=== PATIENT | female | born 1980 | race African-American/Black ===

== ENCOUNTER 2020-09-25 06:34 | Emergency (ER) | payer SELFPAY ==
[2020-09-25 06:43] VITALS: BP 112/63
[2020-09-25 07:29] LABS: Bilirubin,Urine NEG (Negative); Blood,Urine SM (Negative); Color,Urine Yellow (Yellow); HCG Qualitative,Urine Negative (Negative); Mucus,Urine 2+ /HPF; Protein,Urine <15 mg/dL mg/dL (Negative); Urobilinogen,Urine < 2.0 mg/dL (<2.0); WBC,Urine < 1.0 /HPF (0.0-6.0)
[2020-09-25 08:16] LABS: Basophils % (Auto) 0.3 % (0.0-1.8); Eosinophils # (Auto) 0.1 K/mm3 (0.0-0.4); Hematocrit 33.9 % (30.3-42.9); Hemoglobin 11.3 gm/dl (10.1-14.3); Lymphocytes % (Auto) 16.8 % (13.4-35.0); Mean Corpuscular HGB Conc 33 % (30-34); Mean Corpuscular Volume 83 fl (79-97); Monocytes # (Auto) 0.6 K/mm3 (0.0-0.8); Monocytes % (Auto) 9.8 % (0.0-7.3); Platelet Count 200 K/mm3 (140-440); Red Cell Distribution Width 14.2 % (13.2-15.2)
[2020-09-25 08:42] LABS: Blood Urea Nitrogen 15 mg/dL (7-17); Calcium 8.9 mg/dL (8.4-10.2); Hemolysis Index 4
[2020-09-25 08:48] LABS: BUN/Creatinine Ratio 25
--- NOTE | 2020-09-25 10:43 | Emergency Department Report ---
ED Abdominal Pain HPI - General Chief Complaint: Abdominal Pain Stated Complaint: LEFT SIDE PAIN Time Seen by Provider: 09/25/20 10:38 Source: patient Mode of arrival: Ambulatory Limitations: No Limitations - History of Present Illness Initial Comments: Patient is 39 years old female presented to the ER complaining of left flank pain for the last 2 weeks. Patient stated that she went to her doctor few days ago and she was given pain medication but there is no improvement. Patient stated that she could not sleep last night because of pain. Patient described the pain as sharp comes and goes. Patient denies any nausea, vomiting or diarrh ea. No dysuria or hematuria. Patient also denied any vaginal bleeding or vaginal discharge. No fever or chills. MD Complaint: abdominal pain, flank pain - Related Data Previous Rx's Medication Instructions Recorded Last Taken Type HYDROcodone/APAP 5-325 [[place] 1 each PO Q6HR PRN #14 tablet 09/25/20 Unknown Rx 5/325] Ondansetron [Zofran Odt] 4 mg PO Q8HR PRN #14 tab.rapdis 09/25/20 Unknown Rx Allergies Allergy/AdvReac Type Severity Reaction Status Date / Time No Known Allergies Allergy Unverified 09/25/20 06:38 ED Review of Systems ROS: Stated complaint: LEFT SIDE PAIN Other details as noted in HPI Comment: All other systems reviewed and negative Constitutional: denies: chills, fever Respiratory: denies: cough, shortness of breath, SOB with exertion Cardiovascular: denies: chest pain, palpitations Gastrointestinal: abdominal pain. denies: nausea, vomiting, diarrhea, constipation, hematemesis, melena, hematochezia Musculoskeletal: denies: back pain Neurological: denies: headache, weakness, numbness, paresthesias, confusion ED Past Medical Hx - Past Medical History Previous Medical History?: No - Surgical History Hx Appendectomy: Yes - Social History Smoking Status: Never Smoker - Medications Home Medications: Home Medications Medication Instructions Recorded Confirmed Last Taken Type HYDROcodone/APAP 5-325 [[place] 1 each PO Q6HR PRN #14 tablet 09/25/20 Unknown Rx 5/325] Ondansetron [Zofran Odt] 4 mg PO Q8HR PRN #14 tab.rapdis 09/25/20 Unknown Rx ED Physical Exam - General Limitations: No Limitations General appearance: alert, in no apparent distress - Head Head exam: Present: atraumatic, normocephalic, normal inspection - Eye Eye exam: Present: normal appearance, PERRL - ENT ENT exam: Present: normal exam, normal orophraynx, mucous membranes moist - Neck Neck exam: Present: normal inspection, full ROM. Absent: tenderness, meningismus - Respiratory Respiratory exam: Present: normal lung sounds bilaterally - Cardiovascular Cardiovascular Exam: Present: regular rate, normal rhythm, normal heart sounds - GI/Abdominal GI/Abdominal exam: Present: soft, normal bowel sounds. Absent: distended, tenderness, guarding, rebound, rigid, organomegaly, mass, bruit, pulsatile mass, hernia - Extremities Exam Extremities exam: Present: normal inspection - Back Exam Back exam: Present: CVA tenderness (L). Absent: CVA tenderness (R) - Neurological Exam Neurological exam: Present: alert, oriented X3, CN II-XII intact - Psychiatric Psychiatric exam: Present: normal mood - Skin Skin exam: Present: warm, intact, normal color ED Course Vital Signs 09/25/20 06:42 Temperature 97.7 F Pulse Rate 59 L Respiratory 18 Rate Blood Pressure 112/63 O2 Sat by Pulse 97 Oximetry ED Medical Decision Making - Lab Data Result diagrams: 09/25/20 07:40 09/25/20 07:40 - Radiology Data Radiology results: report reviewed - Medical Decision Making Patient is 39 years old female presented to the ER complaining of left flank pain for the last 2 weeks. Patient stated that she went to her doctor few days ago and she was given pain medication but there is no improvement. Patient stated that she could not sleep last night because of pain. Patient described the pain as sharp comes and goes. Patient denies any nausea, vomiting or diarrhea. No dysuria or hematuria. Patient also denied any vaginal bleeding or vaginal discharge. No fever or chills. Patient remained stable in the ER. Labs reviewed and is unremarkable. CT abdomen and pelvis showed significant retroperitoneal adenopathy and irregular cervical wall indicating possibility of metastatic cervical cancer. I discussed the patient with Dr. Self, gynecology on-call for us. She advised to refer the patient to Dr. Garland Benson, gynecology oncologist. I discussed the patient with Dr. Garland Benson he stated that he will ask his staff to call her for an appointment. Patient given information for the follow-up. I informed the patient about her CT finding and the concern for cervical cancer and the importance of following up as soon as possible. Patient does not speak in Ukrainian and translation is done by Nicole. Critical care attestation.: If time is entered above; I have spent that time in minutes in the direct care of this critically ill patient, excluding procedure time. ED Disposition Clinical Impression: Acute abdominal pain, Cervical cancer Disposition: TO HOME OR SELFCARE Is pt being admited?: No Condition: Stable Instructions: Abdominal Pain, Adult, Cervical Cancer, Abdominal Pain (ED) Prescriptions: HYDROcodone/APAP 5-325 [[place] 5/325] 1 each PO Q6HR PRN #14 tablet PRN Reason: Pain Ondansetron [Zofran Odt] 4 mg PO Q8HR PRN #14 tab.rapdis PRN Reason: Nausea And Vomiting Referrals: PRIMARY CARE, [Primary Care Provider] - 3-5 Days GARLAND BENSON MD [Staff Physician] - 3-5 Days Print Language: KITTITIAN
--- NOTE | 2020-09-25 11:22 | Cat Scan Report ---
CT abdomen pelvis wo con INDICATION / CLINICAL INFORMATION: ABDOMINAL PAIN/left flank pain x2wks. TECHNIQUE: Routine CT abdomen pelvis without contrast All CT scans at this location are performed using CT dose reduction for ALARA by means of automated exposure control. COMPARISON: None available. FINDINGS: Abdomen and pelvis: There is severe retroperitoneal adenopathy identified about the abdomen and pelvi s. Severe adenopathy is identified involving the distal left external iliac azra chains with direct extension into the inguinal azra chain bilaterally, left worse than right. There appears to be some subcutaneous edema anteriorly along the pelvis with extension to the left groin. Many of these enlarg ed nodes are difficult to visualize secondary to lack of IV contrast but there is a node within the d istal left external iliac azra chain that measures about 1.9 cm in short axis. Urinary bladder appears mildly thickened and there is some heterogeneous fatty stranding surrounding the urinary bladder and especially the uterine cervix. The uterine cervix appears enlarged and irregu lar. The upper uterus is grossly unremarkable. Moderate stool burden identified throughout the colon. The liver, gallbladder, spleen, adrenal glands and kidneys are grossly unremarkable without evidence of nephrolithiasis or hydronephrosis. Review o f the osseous structures demonstrates no acute findings in the lower lungs are grossly clear IMPRESSION: Severe retroperitoneal adenopathy involving much of the abdomen and pelvis with large bul ky adenopathy within the pelvic sidewalls with extension into the inguinal canals bilaterally. It is unclear if this is secondary to underlying malignancy or infection but the cervix appears at least mo derately abnormal and has a significant irregular contour. Underlying cervical neoplasm cannot be exc luded. [employer] consultation is suggested. Signer Name: Hugh Fuentes MD Signed: 09/25/2020 11:17 AM Workstation Name: [id number]
[2020-09-25] MEDS ORDERED: KETOROLAC 60 MG/2 ML INJ IM ONE (12:00)
== END 2020-09-25 12:41 | disposition home or self-care (01) ==
LOC: ED 06:34
DX: C53.9 Malignant neoplasm of cervix uteri, unspecified (principal); R10.9 Unspecified abdominal pain; Z79.899 Other long term (current) drug therapy; Z90.49 Acquired absence of other specified parts of digestive tract
CPT/HCPCS: 36415; 74176; 80048; 81001; 81025; 83690; 85025; 96372; 99283; 99284